=== PATIENT | female | born 1985 | race Caucasian/White ===

== ENCOUNTER 2019-06-19 06:11 | Day surgery (SDC) | payer MEDICAID ==
[~2019-06-19] VITALS: Ht 165.1 cm; Wt 81.6 kg
[2019-06-19] MEDS ORDERED: LACTATED RINGERS 1,000 ML IV SCH (07:30)
[2019-06-19 07:33] LABS: PARTIAL THROMBOPLASTIN TIME 25.1 sec (23.4-31.0)
[2019-06-19 07:40] LABS: BASOPHILS % 0.5 % (0.0-2.0); EOSINOPHILS % 8.7 % (0.0-5.0); HEMATOCRIT. 41.1 % (36.0-48.0); LYMPHOCYTES % 30.7 % (20.0-50.0); MEAN CORPUSCULAR HEMOGLOBIN 29.6 pg (28.0-32.0); MEAN CORPUSCULAR VOLUME 86.6 fL (81.0-99.0); MEAN PLATELET VOLUME 8.3 fl (7.4-10.4); MONOCYTES % 8.2 % (2.0-8.0); NEUTROPHILS % 51.9 % (40.0-76.0); PLATELET 293 x1000/uL (130-400); RED BLOOD CELL COUNT 4.74 mill/uL (4.2-5.4); RED CELL DISTRIBUTION WIDTH 13.4 % (11.6-14.6)
[2019-06-19] MEDS ORDERED: BUPIVACAINE HCL/PF 0.5% (5MG/ML) 10ML ONE (08:10)
[2019-06-19 08:11] LABS: CHLORIDE 109 mEq/L (98-107)
[2019-06-19 08:12] LABS: CLARITY URINE CLOUDY (CLEAR); COLOR URINE YELLOW (YELLOW); KETONES URINE NEGATIVE (NEGATIVE); LEUKOCYTE ESTERASE URINE NEGATIVE (NEGATIVE); NITRITE URINE NEGATIVE (NEGATIVE); OCCULT BLOOD URINE NEGATIVE (NEGATIVE); PH URINE 5.5 (4.5-8.0); PROTEIN URINE NEGATIVE (NEGATIVE); SPECIFIC GRAVITY URINE 1.022 (1.005-1.030); UROBILINOGEN URINE 0.2 E.U./dL (0.2-1.0)
[2019-06-19 08:32] LABS: UCG SCREEN NEGATIVE
[2019-06-19] MEDS ORDERED: SKIN ADHESIVE 0.7 GM EA TOP ONE (09:09)
[2019-06-19] MEDS ORDERED: ROCURONIUM BROMIDE 10MG/ML VIAL 5ML IV ONE (10:31)
[2019-06-19] MEDS ORDERED: FENTANYL CITRATE/PF 50MCG/ML 2ML VIAL ONE (10:31)
[2019-06-19] MEDS ORDERED: NEOSTIGMINE METHYLSULFATE 1MG/ML 10 ML VIAL ONE (10:31)
[2019-06-19] MEDS ORDERED: GLYCOPYRROLATE 0.2 MG/ML 2ML VIAL ONE ×2 (10:32→11:35)
[2019-06-19] MEDS ORDERED: PROPOFOL 200MG/20ML VIAL IV ONE (10:32)
[2019-06-19] MEDS ORDERED: MIDAZOLAM HCL 2 MG/2 ML VIAL ONE (10:32)
[2019-06-19] MEDS ORDERED: DEXAMETHASONE 4MG/ML 1ML VIAL ONE (10:35)
[2019-06-19] MEDS ORDERED: ONDANSETRON HCL 4MG/2ML INJ ONE (10:35)
[2019-06-19] MEDS ORDERED: LABETALOL HCL 5MG/ML VIAL 20ML IV ONE (11:05)
[2019-06-19] MEDS ORDERED: ONDANSETRON HCL 4MG/2ML INJ IV PRN (11:15)
[2019-06-19] MEDS ORDERED: LABETALOL 5MG/ML SYR 20 MG/4 ML SYRINGE IV PRN (11:15)
[2019-06-19] MEDS ORDERED: MEPERIDINE HCL/PF 25MG/ML CPJ IV PRN (11:15)
[2019-06-19] MEDS ORDERED: HYDROMORPHONE HCL/PF 2MG/ML CPJ IV PRN (11:15)
[2019-06-19] MEDS ORDERED: HYDROCODONE/ACETAMINOPHEN 5/325MG TABLET PO PRN (12:15)
[2019-06-19] MEDS ORDERED: IBUPROFEN 800MG TABLET PO PRN (12:15)
[2019-06-19] MEDS ORDERED: KETOROLAC 30MG/ML VIAL ONE (12:16)
[2019-06-19 12:19] VITALS: BP 128/80
[2019-06-19] MEDS ORDERED: KETOROLAC 30MG/ML VIAL IV ONE (12:30)
[2019-06-19] MEDS ORDERED: KETOROLAC 30MG/ML VIAL IV NR (13:15)
== END 2019-06-19 15:05 | disposition home or self-care (01) ==
LOC: OR 06:11
PROVIDERS: ATTEND Obstetrics & Gynecology
DX: Z30.2 Encounter for sterilization (principal); E78.00 Pure hypercholesterolemia, unspecified; Z79.899 Other long term (current) drug therapy
CPT/HCPCS: 36415; 58670; 80048; 81003; 81025; 85025; 85610; 85730; J1100; J1885; J2250; J2405; J2704; J2710; J3010; J3490; C1758